=== PATIENT | female | born 1995 | race African-American/Black ===

== ENCOUNTER 2023-06-27 21:43 | Emergency (ER) | payer MEDICAID ==
[~2023-06-27] VITALS: Ht 170.2 cm; Wt 107.6 kg
[2023-06-27 22:09] VITALS: O2SAT 100
[2023-06-27] MEDS ORDERED: BENZ200C52 MT (23:18)
[2023-06-28 02:33] VITALS: BP 145/88; PULSE 105; RESP 18; TEMP 98.5
== END 2023-06-28 02:35 | disposition home or self-care (01) ==
LOC: ER 21:43
DX: R05.9 Cough, unspecified (principal)
CPT/HCPCS: 71045; 99283